=== PATIENT | male | born 1985 | race Caucasian/White ===

== ENCOUNTER 2022-11-02 05:27 | Day surgery (SDC) | payer BC ==
[2022-11-02] MEDS ORDERED: Midazolam 1 MG/ML 2 ML SDV IV ONE ×3 (05:28→06:40)
[2022-11-02] MEDS ORDERED: fentaNYL 100 MCG/2 ML SDV IV ONE ×3 (05:28→06:38)
[2022-11-02] MEDS ORDERED: Dextrose 5%-0.45% NaCl 1,000 ML IV SCH (05:30)
[2022-11-02] MEDS ORDERED: Midazolam 1 MG/ML 2 ML SDV ONE (06:13)
[2022-11-02] MEDS ORDERED: fentaNYL 100 MCG/2 ML SDV ONE (06:14)
== END 2022-11-02 08:25 | disposition home or self-care (01) ==
LOC: DL.ENDO 05:27
PROVIDERS: ATTEND Internal Medicine Gastroenterology
DX: K29.50 Unspecified chronic gastritis without bleeding (principal); K31.A0 Gastric intestinal metaplasia, unspecified; I10 Essential (primary) hypertension; K21.9 Gastro-esophageal reflux disease without esophagitis; G47.00 Insomnia, unspecified; F41.1 Generalized anxiety disorder; E66.09 Other obesity due to excess calories; Z68.32 Body mass index [BMI] 32.0-32.9, adult; Z79.899 Other long term (current) drug therapy
CPT/HCPCS: 43239; 87077; J2250; J3010; J7042